=== PATIENT | male | born 1980 | race Caucasian/White ===

== ENCOUNTER 2019-06-01 17:22 | Emergency (ER) | payer OTHER ==
[2019-06-01 18:35] LABS: #Basophils 0.1 thou/uL (0.0-0.2); #Eosinphils 0.1 thou/uL (0.0-0.7); #Lymphocytes 1.7 thou/uL (1.20-3.40); #Monocytes 0.7 thou/uL (0.11-0.59); #Neutrophils 7.1 thou/uL (1.40-6.50); %Basophils 0.5 % (0.0-1.0); %Eosinophils 0.6 % (0.0-10.0); %Lymphocytes 17.9 % (21.0-51.0); %Monocytes 6.8 % (0.0-10.0); %Neutrophils 74.1 % (42.0-75.0); Hemoglobin 16.4 g/dL (14.0-18.0); Mean Corpuscular HGB CONC 33.8 g/dL (32.0-36.0); Mean Corpuscular Hemoglobin 30.9 pg (27.0-31.0); Mean Corpuscular Volume 91.3 fL (78.0-98.0); Mean Platelet Volume 7.3 fL (7.4-10.4); Platelet Count 206 thou/uL (130-400); RBC Distribution Width 11.9 % (11.5-14.5); Red Blood Cell (RBC) Count 5.31 mill/uL (4.70-6.10); White Blood Cell (WBC) Count 9.5 thou/uL (4.8-10.8)
[2019-06-01 18:52] LABS: Bilirubin Negative (Negative); Blood, Urine Negative (Negative); Clarity Clear (Clear); Glucose, Urine (Dipstick) Normal (Negative); Leukocyte Negative Leu/uL (Negative); Nitrite Negative (Negative); Protein, Urine (Dipstick) Negative (Neg-Trace); Urobilinogen Normal mg/dL (Less than 2)
[2019-06-01] MEDS ORDERED: Ketorolac Tromethamine 60 MG/2 ML VIAL ONE (18:59)
[2019-06-01 19:00] LABS: Anion Gap 13 mmol/L (10-20); BUN (Urea Nitrogen) 14 mg/dL (8.9-20.6); Calc. Creatinine Clearance 0 mL/min (70-130); Calcium 9.7 mg/dL (7.8-10.44); Carbon Dioxide 27 mmol/L (22-29); Chloride 102 mmol/L (98-107); Estimated GFR-MDRD 71; Glucose 98 mg/dL (70-105); Sodium 138 mmol/L (136-145)
--- NOTE | 2019-06-01 19:53 | CT ---
EXAM: CT abdomen and pelvis without contrast PROVIDED CLINICAL HISTORY: Right flank pain COMPARISON: None FINDINGS: Visualized lung bases are free of significant opacity. No evidence for urinary tract calculi or hydronephrosis. Solid abdominal organs are suboptimally evaluated in the absence of IV contrast material but demonstr ate an unremarkable unenhanced CT appearance. No bowel dilatation, inflammatory fat stranding, free fluid or free air apparent. The appendix appear s normal. Intrathecal pain pump and associated catheter is noted. The osseous structures demonstrate no concern ing lytic or blastic lesions. IMPRESSION: No evidence for urinary tract calculi or hydronephrosis.
== END 2019-06-01 21:00 | disposition home or self-care (01) ==
LOC: ERS 17:22
DX: S29.012A Strain of muscle and tendon of back wall of thorax, initial encounter (principal); R05 Cough; J45.909 Unspecified asthma, uncomplicated; X58.XXXA Exposure to other specified factors, initial encounter
CPT/HCPCS: 36415; 74176; 80048; 81003; 85025; 93005; 96372; J1885